=== PATIENT | female | born 1990 | race Two or more races ===

== ENCOUNTER 2023-11-18 12:16 | Inpatient (IN) | payer OTHER ==
[~2023-11-18] VITALS: Ht 162.6 cm; Wt 72.6 kg
[2023-12-23 23:46] VITALS: BP 125/80
[2023-12-24] VITALS (8 sets, daily range): BP systolic 119–133; BP diastolic 67–80
[2023-12-24] MEDS ORDERED: RINGERS SOLUTION,LACTATED 1,000 ML IV SCH (00:30)
[2023-12-24] MEDS ORDERED: AMPICILLIN SODIUM 2,000 MG VIAL IV ONE (00:30)
[2023-12-24] MEDS ORDERED: MORPHINE SULFATE 4 MG/ML CARTRIDGE IV PRN (00:30)
[2023-12-24] MEDS ORDERED: FAMOTIDINE/PF 20 MG/2 ML VIAL IV PUSH PRN (00:30)
[2023-12-24] MEDS ORDERED: PRENATAL TABLE1 EAC1 PO (01:15)
[2023-12-24] MEDS ORDERED: B COMPLEX1 EACH PO (01:15)
[2023-12-24 01:34] LABS: HEMATOCRIT 38.4 % (36.0-45.00); HEMOGLOBIN 13.2 g/dL (12.0-15.00); MEAN CELL VOLUME 85.7 fL (80.00-100.00); MEAN CORPUSCULAR HEMOGLOBIN 29.4 pg (27.00-32.0); MEAN CORPUSCULAR HGB CONC 34.3 g/dl (32.0-36.0); PLATELET COUNT 188 K/uL (150-450); RED BLOOD COUNT 4.48 M/uL (4.00-6.00)
[2023-12-24 01:51] LABS: ALBUMIN 2.9 gm/dL (3.4-5.0); BILIRUBIN TOTAL 0.21 mg/dL (0.3-1.2); CREATININE SERUM 0.59 mg/dL (0.55-1.02); GFR 118.12; GLOBULINA 3.2 G/DL (2.4-3.5); POTASSIUM 4.33 mEq/L (3.5-5.1); TOTAL PROTEIN 6.1 gm/dL (6.4-8.2)
[2023-12-24 02:02] LABS: INR 0.94; PARTIAL THROMBOPLASTIN TIME 27.8 SECONDS (22.0-34.0); PROTHROMBIN TIME 10.3 SECONDS (9.0-11.5)
[2023-12-24] MEDS ORDERED: AMPICILLIN SODIUM 1,000 MG VIAL IV SCH (04:00)
[2023-12-24] MEDS ORDERED: OXYTOCIN 500 ML IV SCH (04:15)
[2023-12-24] MEDS ORDERED: IBUprofen 400 MG TABLET PO PRN (08:15)
[2023-12-24] MEDS ORDERED: OXYTOCIN 1,000 ML IV SCH (08:15)
[2023-12-24] MEDS ORDERED: CHLORHEXIDINE GLUCONATE 120 ML BOTTLE TP SCH (08:15)
[2023-12-24] MEDS ORDERED: LIDOCAINE HCL 1% 10ML VIAL IJ ONE (10:00)
[2023-12-24] MEDS ORDERED: ERYTHROMYCIN BASE OPHT 1GM EACH TUBE OP ONE (10:00)
[2023-12-24] MEDS ORDERED: BENZOCAINE/MENTHOL 90 ML BOTTLE TOP SCH (17:00)
[2023-12-24] MEDS ORDERED: SENNA/DOCUSATE SODIUM 1 TAB TABLET PO SCH (21:00)
[2023-12-25 00:42] VITALS: BP 133/88
[2023-12-25 08:15] VITALS: BP 113/76
[2023-12-25] MEDS ORDERED: OxyCODONE HCL/APAP UD (PERCOCET) PO PRN ×2 (10:45)
[2023-12-25 16:00] VITALS: BP 113/75
[2023-12-26 00:24] VITALS: BP 108/65
[2023-12-26 09:13] VITALS: BP 122/78
== END 2023-12-26 13:37 | disposition home or self-care (01) | DRG 807 ==
LOC: LDR 12-18 12:15 → OB/GYN 12-24 00:23 → LDR 12-24 00:49 → OB/GYN 12-24 08:19
PROVIDERS: Obstetrics & Gynecology Gynecology; ADMIT Obstetrics & Gynecology Maternal & Fetal Medicine; ATTEND Obstetrics & Gynecology Maternal & Fetal Medicine
PROC: 10E0XZZ Delivery of Products of Conception, External Approach (ICD-10-PCS; principal; 2023-12-24)
PROC: 0KQM0ZZ Repair Perineum Muscle, Open Approach (ICD-10-PCS; 2023-12-24)
PROC: 0UQG7ZZ Repair Vagina, Via Natural or Artificial Opening (ICD-10-PCS; 2023-12-24)
DX: O70.1 Second degree perineal laceration during delivery (principal); Z37.0 Single live birth; Z3A.40 40 weeks gestation of pregnancy; Z20.822 Contact with and (suspected) exposure to COVID-19

== ENCOUNTER 2023-12-16 11:27 | Outpatient (CLI) | payer OTHER | END 2023-12-16 12:53 | disposition home or self-care (01) | LOC: NST 11:27 | PROVIDERS: ATTEND Obstetrics & Gynecology Maternal & Fetal Medicine | DX: Z34.83 Encounter for supervision of other normal pregnancy, third trimester (principal) ==

== ENCOUNTER 2023-12-19 10:10 | Outpatient (CLI) | payer OTHER | END 2023-12-19 10:35 | disposition home or self-care (01) | LOC: NST 10:10 | PROVIDERS: ATTEND Obstetrics & Gynecology Maternal & Fetal Medicine | DX: Z34.80 Encounter for supervision of other normal pregnancy, unspecified trimester (principal) ==

== ENCOUNTER 2023-12-23 13:48 | Outpatient (CLI) | payer OTHER ==
[2023-12-24] MEDS ORDERED: PRENATAL TABLE1 EAC1 PO (01:15)
[2023-12-24] MEDS ORDERED: B COMPLEX1 EACH PO (01:15)
== END 2023-12-23 14:41 | disposition home or self-care (01) ==
LOC: NST 13:48
PROVIDERS: ATTEND Obstetrics & Gynecology Gynecology
DX: Z34.83 Encounter for supervision of other normal pregnancy, third trimester (principal)